=== PATIENT | male | born 1960 | race Caucasian/White ===

== ENCOUNTER → 2018-06-25 | Outpatient (CLI) | payer SELFPAY ==
--- NOTE | 2018-06-25 15:10 | XR ---
EXAMINATION TYPE: XR ribs RT DATE OF EXAM: 06/25/2018 COMPARISON: NONE HISTORY: Pain TECHNIQUE: 4 views submitted FINDINGS: Arthropathy of the shoulder. There is a deformity of the posterior lateral right eighth and ninth rib. Visualized lungs are clear. No pneumothorax. IMPRESSION: Acute mildly displaced fractures posterior lateral right eighth and ninth ribs.
== END ==
LOC: RADXRMAIN 14:31
PROVIDERS: ATTEND Internal Medicine
DX: S22.41XA Multiple fractures of ribs, right side, initial encounter for closed fracture (principal)